=== PATIENT | male | born 1960 | race Caucasian/White ===

== ENCOUNTER 2017-04-19 18:48 | Emergency (ER) | payer OTHER ==
[~2017-04-19] VITALS: Ht 167.6 cm; Wt 61.9 kg
[~2017-04-19 18:48] MED LIST: IBUP800T23 PO
[2017-04-19 19:06] VITALS: BP 156/97; PULSE 100; RESP 18; TEMP 98.5; O2SAT 96
[2017-04-19] MEDS ORDERED: ANXIETY (19:20)
[2017-04-19] MEDS ORDERED: ARTHRITIS (19:20)
[2017-04-19] MEDS ORDERED: BLOOD PRESSURE (19:20)
[2017-04-19] MEDS ORDERED: PAIN MED (19:20)
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
[2017-04-19] MEDS ORDERED: ACETAMINOPHEN/HYDROcodone 325 MG/5 MG TAB PO ONE (19:30)
[2017-04-19] MEDS ORDERED: KETOROLAC TROMETHAMINE 60 MG/2 ML (IM) VIAL IM ONE (19:30)
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
== END 2017-04-19 20:50 | disposition home or self-care (01) ==
LOC: PHEFT 18:48
DX: S13.4XXA Sprain of ligaments of cervical spine, initial encounter (principal); G89.29 Other chronic pain; M54.5 Low back pain; I10 Essential (primary) hypertension; Z72.0 Tobacco use; V43.52XA Car driver injured in collision with other type car in traffic accident, initial encounter
CPT/HCPCS: 72125; 96372; 99285; J1885